=== PATIENT | female | born 1955 | race Caucasian/White ===

== ENCOUNTER 2018-10-12 14:55 | Observation (INO) ==
[2018-10-12 16:03] LABS: Albumin/Globulin Ratio 1.2 (1.1-1.8); Anion Gap 12.9 mEq/L (5-15); Bilirubin,Total 0.6 mg/dL (0.2-1.0); Calcium 9.7 mg/dL (8.5-10.1); Globulin 3.3 gm/dl (1.3-3.2); Total Protein,Serum 7.3 gm/dL (6.4-8.2)
[2018-10-12 16:23] LABS: Basophils % 0.2 % (0.1-2.0); Eosinophils # 0.1 K/mm3 (0.0-0.4); Eosinophils % 0.3 % (0.1-12.0); Hematocrit 43.4 % (37.0-47.0); Hemoglobin 13.5 g/dL (12.2-16.2); Lymphocytes # 1.5 K/mm3 (0.7-4.5); Lymphocytes % 10.3 % (10-50); Mean Corpuscular HGB Conc 31.1 g/dL (31.8-35.4); Mean Corpuscular Volume 92.6 fl (81-99); Monocytes # 0.7 K/mm3 (0.1-1.0); Monocytes % 4.6 % (1.7-9.3); Neutrophils # 12.7 K/mm3 (1.8-7.8); Neutrophils % 84.5 % (37.0-80.0); Platelet Count 249 K/mm3 (142-424); Red Blood Count 4.69 M/mm3 (4.20-5.40); Red Cell Distribution Width 12.1 % (11.5-17.5)
--- NOTE | 2018-10-12 16:39 | Emergency Department Note ---
ED Disposition Clinical Impression: Retrocecal appendicitis Disposition: Still a Patient Condition on Discharge: Good Instructions: DI for Acute Abdomen Referrals: Provider,Referral, [Primary Care Provider] - Time of Disposition: 17:27 - Critical Care Critical Care Time: No Attestation: On 10/12/18, the high probability of a clinically significant, sudden or life threatening deterioration of the following system(s) required my full and direct attention, intervention and personal management. The time I documented below is in addition to time spent performing reported procedures but includes the following listed in this critical care notation. Medical Decision Making - Medical Records Medical records reviewed: Yes: I reviewed the patient's medical records. - Mark Inquiry Pt receiving controlled substance: No Mark was queried for this patient: No Vital Signs: 10/12/18 15:03 10/12/18 15:26 10/12/18 17:21 Temperature 97.8 F 97.8 F Temperature Source Oral Oral Pulse Rate [Right Radial] 70 81 74 Respiratory Rate 21 17 Blood Pressure [Right Arm] 110/61 142/68 H 146/76 H Blood Pressure Mean [Right Arm] 77 92 99 Blood Pressure Source [Right Arm] Automatic Cuff Automatic Cuff Automatic Cuff Blood Pressure Position [Right Arm] Sitting Sitting Supine 02 Sat by Pulse Oximetry 98 100 96 Oxygen Delivery Method Room Air Room Air Room Air - Lab Data Lab results reviewed: Yes: I reviewed the patient's lab results. Lab Results 10/12/18 15:14: Urine Color Yellow, Urine Appearance Clear, Urine pH 5.0, Ur Specific [place] 1.015, Urine Protein Negative, Urine Glucose (UA) Negative, Ur ine Ketones Trace, Urine Blood Negative, Urine Nitrate Negative, Urine Bilirubin Negative, Urine Urobilinogen 0.2, Ur Leukocyte Esterase Negative 10/12/18 15:20: Urine Color Yellow, Urine Appearance Clear, Urine pH 6.0, Ur Specific [place] 1.025, Urine Protein Negative, Urine Glucose (UA) Negative, Urine Ketones Trace, Urine Blood Negative, Urine Nitrate Negative, Urine Bi lirubin Negative, Urine Urobilinogen 0.2, Ur Leukocyte Esterase Negative 10/12/18 15:37: WBC 15.0 H, RBC 4.69, Hgb 13.5, Hct 43.4, MCV 92.6, MCH 28.8, MCHC 31.1 L, RDW 12.1, Plt Count 249, MPV 7.0 L, Neut % (Auto) 84.5 H, Lymph % (Auto) 10.3, [place] % (Auto) 4.6, Eos % (Auto) 0.3, Baso % (Auto) 0.2, Neut # (Auto) 12.7 H, Lymph # (Auto) 1.5, [place] # (Auto) 0.7, Eos # (Auto) 0.1, Baso # (Auto) 0.0, Total Counted 100, Neutrophils % (Manual) 85 H, Band Neutrophils % 4.0, Lymphocytes % (Manual) 9 L, Monocytes % (Manual) 2, Platelet Estimate Normal, RBC Morphology Normal 10/12/18 15:37: Sodium 140, Potassium 3.9, Chloride 104, Carbon Dioxide 27, Anion Gap 12.9, BUN 8, Creatinine 0.80, Estimated Creat Clear 58, Estimated GFR 73, Est GFR ( Amer) 88, Glucose 110 H, Calcium 9.7, Total Bilirubin 0.6, AST 19, ALT 28, Alkaline Phosphatase 90, Total Protein 7.3, Albumin 4.0, Globulin 3.3 H, Albumin/Globulin Ratio 1.2, Amylase 71, Lipase 109 Result diagrams: 10/12/18 15:37 10/12/18 15:37 Orders (Tests/Meds): ED MEDICATIONS Discontinued Medications Generic Name Dose Route Start Last Admin Trade Name Leda PRN Reason Stop Dose Admin Ampicillin Sodium/Sulbactam 100 mls @ 200 mls/hr 10/12/18 17:25 Sodium 3 gm/ Sodium Chloride IV 10/12/18 17:26 ONCE ONE Protocol Ioversol 75 ml 10/12/18 16:31 10/12/18 16:32 Rad-Optiray 350 100ml Vial IV 10/12/18 16:32 75 ml ONCE ONE Administration Protocol Morphine Sulfate 4 mg 10/12/18 17:03 10/12/18 17:08 Morphine 4mg/Ml Syringe IV 10/12/18 17:04 4 mg ONCE ONE Administration Ondansetron HCl 4 mg 10/12/18 17:03 10/12/18 17:08 Zofran 4mg/2ml Vial IV 10/12/18 17:04 4 mg ONCE ONE Administration Sodium Chloride 10 ml 10/12/18 16:31 10/12/18 16:32 Rad-Saline Flush 10ml Syringe IV 10/12/18 16:32 10 ml ONCE ONE Administration ORDERS Category Date Time Status Urinalysis and Microscopic Stat Lab 10/12/18 15:20 Results Urine Culture Stat Micro 10/12/18 15:20 Received Abdominal Pain HPI - General Chief Complaint: Abdominal Pain Stated Complaint: Pain in Adm Time Seen by Provider: 10/12/18 16:18 Mode of Arrival: Family Vehicle Source of Information: Patient Limitations: No Limitations Description of Symptoms (Recalled from ER Triage Doc. by RN): right mid epigastric radiating to right groin since this morning while she was sitting watching tv. states coughing and incr movement causes incr pain - Related Data Home Medications Medication Instructions Recorded Confirmed Cetirizine HCl [Zyrtec] 10 mg PO DAILY 08/25/18 08/25/18 Previous Rx's Medication Instructions Recorded Azithromycin [Z-Aubrey 250mg Tab] 250 mg PO UD DOSE PK #6 tab 08/25/18 Promethazine/Dextromethorphan 5 ml PO Q6HP PRN #240 syrup 08/25/18 [Promethazine-Dm Syrup] Allergies Allergy/AdvReac Type Severity Reaction Status Date / Time No Known Allergies Allergy Verified 08/25/18 16:58 [facility] History - Hepatitis A Screen Drug use history?: No High risk sexual behaviors?: No History of sexually transmitted infection?: No Currently employed?: No Childcare worker?: No Do you have indoor plumbing?: Yes Do you have electricity?: Yes Attestation statement:: This patient has been screened for Hepatitis A risk factors. I have reviewed the patient's past medical history: Yes Fractures: Yes (ARM) - Social History Smoking Status: Never smoker Tobacco Type: cigarettes # Packs/Day (cigarettes): 1 Alcohol Intake: never Occupational Status: employed - Psychiatric History Expresses thoughts of harming self/others: None Suicide Plan Description: No Plan ROS Obtained: Yes All systems reviewed & no additional complaints - Constitutional Constitutional: Reports system reviewed and no additional complaints, except as docu - Eyes Eyes: Denies blurry vision, Denies change in vision - ENT Ears, Nose, Mouth, and Throat: Denies sinus pain, Denies sinus pressure, Denies sore throat - Cardiovascular Cardiovascular: Denies chest pain, Denies chest pain at rest, Denies diaphoresis, Denies dyspnea - Respiratory Respiratory: No chest congestion, No cough, No dyspnea, No dyspnea on exertion - Gastrointestinal Gastrointestingal: Reports: abdominal pain, cramping. Denies: diarrhea, vomiting - Genitourinary Female Genitourinary: Denies dysuria, Denies flank pain - Musculoskeletal Musculoskeletal: Denies back pain, Denies joint stiffness, Denies joint swelling, Denies limited range of motion - Integumentary/Breasts Skin/Breast: Denies rash, Denies skin pain - Neurologic Neurologic: Denies headache(s), Denies sensory deficit, Denies syncope - Hematologic/Lymphatic Henatologic/Lymphatic: Denies easy bleeding, Denies easy bruising Physical Exam - General General appearance: alert, in no apparent distress - Head Head exam: atraumatic, normocephalic, normal inspection - Eye Eye exam: Present: normal appearance, PERRL, EOMI - ENT ENT exam: Present: normal exam, normal oropharynx, mucous membranes moist, TM's normal bilaterally, normal external ear exam - Chest Chest inspection: Present: normal inspection, symmetric chest wall rise. Absent: tenderness - Respiratory Respiratory exam: Present: normal lung sounds bilaterally. Absent: respiratory distress - Cardiovascular Cardiovascular exam: Present: regular rate, normal rhythm. Absent: JVD - Abdominal Exam Abdominal exam: Present: soft, tenderness, other (pain in suprapubic, right pelvic area. + guarding). Absent: distention, rigidity, hyperactive bowel sounds, hypoactive bowel sounds, organomegaly, mass - Extremities Exam Extremities exam: Present: normal inspection, full ROM, normal capillary refill. Absent: calf tenderness - Neurological Exam Neurological exam: Present: alert, oriented X3 - Psychiatric Psychiatric exam: Present: normal affect, normal mood - Skin Skin exam: Present: warm, dry, intact, normal color
[2018-10-12 16:53] LABS: Lymphocytes % 9 % (10-50); Monocytes % 2 % (2-9); Neutrophils % 85 % (42-76); RBC Morphology Normal; Total Cells Counted 100
[2018-10-12 17:23] LABS: Microscopic, Urine URINE MICROSCOPIC (MICROSCOPIC)
[2018-10-12 17:24] LABS: Appearance,Urine CLEAR (Clear); Bilirubin,Urine Negative (Negative); Blood, Urine Negative (Negative); Color,Urine YELLOW (Yellow); Glucose,Urine (UA) Negative (Negative); Ketones,Urine TRACE (Negative); Leukocyte Esterase,Urine Negative (Negative); Protein,Urine Negative (Negative); Specific Gravity, Urine 1.025 (1.005-1.030); Urobilinogen,Urine 0.2 EU/dl (0.2)
[2018-10-12 17:32] LABS: Bacteria,Urine Trace /lpf
--- NOTE | 2018-10-12 19:15 | Operative Note ---
Date of procedure: 10/12/18 Pre-op Diagnosis:: Acute appendicitis Post-op Diagnosis:: Suppurative appendicitis Procedure performed:: Laparoscopic appendectomy Surgeon:: Juan Vale MD [facility] CLERGY:: Karlos David Anesthesia: GETA Estimated blood loss (mL): 10 Operative findings:: Severe inflammation and thickening of appendix Patchy necrosis along central and distal appendix with no sign of obvious perforation Suppurative changes noted throughout appendix Appendiceal stump/colonic margin appeared viable Operative note:: After informed consent was obtained the patient was taken to the operating room and placed in the supine position. General anesthesia was induced and her abdomen was prepped and draped in a sterile fashion. After infiltration with local anesthetic an infraumbilical incision was made. A Veress needle was placed in position. The abdomen was insufflated. A 12 mm optical trocar was placed in position. Under direct visualization a 5 mm trocar was placed in the suprapubic position and an additional 5 mm trocar was placed in the left lower quadrant. The appendix was carefully elevated. Severe thickening and inflammation was noted throughout the mid and distal appendix. Suppurative changes were noted throughout. Patchy areas of necrosis were noted; however, no obvious perforation was seen. The mesoappendix was taken down with harmonic yady. The appendiceal stump was then taken utilizing the Endopath device. The appendix was placed in a retrieval bag and removed through the infr aumbilical trocar site. The right lower quadrant was thoroughly irrigated. No active bleeding or sign of injury was noted. No pockets of purulence were noted. Pneumoperitoneum was released as the infraumbilical trocar was removed. Fascia was reapproximated at the infraumbilical trocar site with 0 Ethibond. The remaining trocars were removed. All wounds were irrigated and skin was closed with 4-0 Monocryl in a subcuticular fashion. Steri-Strips were applied. The patient's anesthetic agents were reversed and she was extubated prior to transfer to recovery. Condition: stable Disposition: PACU Specimens:: Appendix Complications:: No immediate
--- NOTE | 2018-10-12 19:27 | Progress Note ---
[facility] Anesthesia Checklist - Patient Identification Patient Identification: Arm Band, Verbal (Name & ) - Structural Data Admitted From: Emergency Dept Planned Operative Procedure/s: lap appy Consent for Planned Operative Procedure(s) Verified: Yes Verified Documents: History and Physical - NPO Status Verified Time NPO: 15:00 - Additional verifications Patient : No Anesthesia Reactions: No Hx Blood Transfusions: No Blood Transfusion Reaction: No Cephalosporin Allergy: No Previous Colonoscopy: No - Cardiovascular Assessment Heart Sounds: S1 & S2 Pulse Strength: Baseline Pulse Rhythm: Regular Peripheral Edema: No - Airway Assessment C-Spine Mobility Assessed: Yes TMJ Mobility Assessed: Yes Dentition: Good Dentition - Neurological Assessment Level of Consciousness: Awake, Alert, Appropriate Hx Seizures: No Numbness or tingling in extremities: No - Anesthesia Plan Anesthesia Risk discussed: Yes Anesthesia Plan: Verified ASA Class: I [facility] History I have reviewed the patient's past medical history: Yes *Have you ever received a pneumonia vaccine?: No *Have you received a flu vaccine this season?: No Other Medical History: Denies: Blood Transfusion Reaction Fractures: Yes (ARM) - *Social History Smoking Status: Never smoker Tobacco Type: cigarettes # Packs/Day (cigarettes): 1 Alcohol Intake: never *Occupational Status:: employed *Travel in the last 8 weeks: None - Psychiatric History Expresses thoughts of harming self/others: None Suicide Plan Description: No Plan Family Hx:: Unable to obtain
--- NOTE | 2018-10-12 19:28 | Progress Note ---
[facility] Anesthesia Record Part I Intake, IV Amount: 500 Estimated blood loss (mL): 0 Urine output (mL): 0 Blood Products used (#): none Blood Pressure: 133/76 SaO2: 90 Pulse Rate: 81 Respiratory Rate: 20 Temperature: 97.2 F Patient is:: Awake, Stable Stable to PACU at:: 19:20
--- NOTE | 2018-10-12 19:28 | Progress Note ---
[facility] Anesthesia Record Part II Discharge Time: 19:50 Destination: Medical Surgical Department PACU nurse assessment reviewed?: Yes Patient Condition:: Good Anesthesia Complications:: None Swallowing reflex intact?: Yes Cyanosis?: No
--- NOTE | 2018-10-13 06:46 | Progress Note ---
Subjective Patient reports: feels better Exam Vital signs and Labs for Last 24 Hours: Temp Pulse Resp BP Pulse Ox 98.3 F 69 16 88/41 L 92 L 10/13/18 04:00 10/13/18 04:00 10/13/18 04:00 10/13/18 04:00 10/13/18 04:00 Laboratory Results - last 24 hr 10/12/18 15:14: Urine Color Yellow, Urine Appearance Clear, Urine pH 5.0, Ur Specific [place] 1.015, Urine Protein Negative, Urine Glucose (UA) Negative, Urine Ketones Trace, Urine Blood Negative, Urine Nitrate Negative, Urine Bilirubin Negative, Urine Urobilinogen 0.2, Ur Leukocyte Esterase Negative 10/12/18 15:20: Urine Color Yellow, Urine Appearance Clear, Urine pH 6.0, Ur Specific [place] 1.025, Urine Protein Negative, Urine Glucose (UA) Negative, Urine Ketones Trace, Urine Blood Negative, Urine Nitrate Negative, Urine Bilirubin Negative, Urine Urobilinogen 0.2, Ur Leukocyte Esterase Negative, Ur Squamous Epith Cells 5-10, Urine Bacteria Trace 10/12/18 15:37: WBC 15.0 H, RBC 4.69, Hgb 13.5, Hct 43.4, MCV 92.6, MCH 28.8, MCHC 31.1 L, RDW 12.1, Plt Count 249, MPV 7.0 L, Neut % (Auto) 84.5 H, Lymph % (Auto) 10.3, [place] % (Auto) 4.6, Eos % (Auto) 0.3, Baso % (Auto) 0.2, Neut # (Auto) 12.7 H, Lymph # (Auto) 1.5, [place] # (Auto) 0.7, Eos # (Auto) 0.1, Baso # (Auto) 0.0, Total Counted 100, Neutrophils % (Manual) 85 H, Band Neutrophils % 4.0, Lymphocytes % (Manual) 9 L, Monocytes % (Manual) 2, Platelet Estimate Normal, RBC Morphology Normal 10/12/18 15:37: Sodium 140, Potassium 3.9, Chloride 104, Carbon Dioxide 27, Anion Gap 12.9, BUN 8, Creatinine 0.80, Estimated Creat Clear 58, Estimated GFR 73, Est GFR ( Amer) 88, Glucose 110 H, Calcium 9.7, Total Bilirubin 0.6, AST 19, ALT 28, Alkaline Phosphatase 90, Total Protein 7.3, Albumin 4.0, Globulin 3.3 H, Albumin/Globulin Ratio 1.2, Amylase 71, Lipase 109 10/12/18 18:20: Urine Color Yellow, Urine Appearance Clear, Urine pH 5.5, Ur Specific [place] 1.010, Urine Protein Negative, Urine Glucose (UA) Negative, Urine Ketones Negative, Urine Blood Trace-i, Urine Nitrate Negative, Urine Bilirubin Negative, Urine Urobilinogen 0.2, Ur Leukocyte Esterase Negative, Urine WBC Occasional, Ur Squamous Epith Cells Occasional I & O for Last 24 hours: Intake & Output 10/10/18 10/11/18 10/12/18 10/13/18 11:59 11:59 11:59 11:59 Intake Total 1814 / 1814 Output Total 200 / 200 Balance 1614 / 1614 Weight 139 lb 2 oz - Constitutional no acute distress - *Routine Respiratory Exam Absent: respiratory distress - *Routine Cardiovascular Exam Present: RRR - *Routine Abdominal Exam Present: soft Comments: Dressings intact. Dressings dry. No erythema. Progress Note: A&P (1) Suppurative appendicitis Status: Acute Assessment and plan: Overall, doing well postoperative day 1 status post laparoscopic appendectomy. Follow-up morning labs Slowly advance diet Continue antibiotics Possible discharge home later today Current Visit: Yes
[2018-10-13 06:50] LABS: Basophils % 0.2 % (0.1-2.0); Eosinophils # 0.1 K/mm3 (0.0-0.4); Eosinophils % 0.6 % (0.1-12.0); Hematocrit 33.3 % (37.0-47.0); Lymphocytes % 24.2 % (10-50); Mean Corpuscular HGB Conc 32.4 g/dL (31.8-35.4); Mean Corpuscular Volume 93.6 fl (81-99); Mean Platelet Volume 7.3 fl (7.4-10.4); Monocytes # 0.5 K/mm3 (0.1-1.0); Monocytes % 5.8 % (1.7-9.3); Neutrophils # 5.6 K/mm3 (1.8-7.8); Neutrophils % 69.2 % (37.0-80.0); Platelet Count 174 K/mm3 (142-424); Red Blood Count 3.56 M/mm3 (4.20-5.40); Red Cell Distribution Width 12.2 % (11.5-17.5); White Blood Count 8.1 K/mm3 (4.8-10.8)
[2018-10-13 06:56] LABS: Anion Gap 12.6 mEq/L (5-15)
[2018-10-13 07:21] LABS: Calcium 7.8 mg/dL (8.5-10.1)
[2018-10-13 07:26] LABS: Hemoglobin 10.6 g/dL (12.2-16.2)
--- NOTE | 2018-10-13 07:26 | Pharmacy Consult Notes ---
[facility] Pharmacy VTE Monitoring - Patient Demographics Admission date: 10/12/18 Report Date: 10/13/18 Time: 07:25 Allergies/Adverse Reactions: Patient Allergies No Known Allergies Allergy (Verified 08/25/18 16:58) Height: 1.73 m Weight: 63.503 kg Patient Problems: Current Active Problems (Updated 10/13/18 @ 06:46 by Juan Vale MD) Retrocecal appendicitis (Acute) Suppurative appendicitis (Acute) - VTE Risk Labs: VTE Related Lab Results Hgb 13.5 g/dL (12.2-16.2) 10/12/18 15:37 Hct 33.3 % (37.0-47.0) L 10/13/18 06:12 Plt Count 174 K/mm3 (142-424) D 10/13/18 06:12 BUN 8 mg/dL (7-18) 10/13/18 06:12 Creatinine 0.91 mg/dL (0.55-1.02) 10/13/18 06:12 Estimated Creat Clear 58 mL/min (50-200) 10/13/18 06:12 Was VTE Risk Assessment Performed: Yes VTE Score: 2 Clinical Trial Participant: No - Prophylaxis VTE Prophylaxis Ordered?: Yes Types of VTE Prophylaxis: TEDS Knee High Location of Applied Device: Bilateral Lower Extremeties
[2018-10-13 11:46] VITALS: BP 90/52
--- NOTE | 2018-10-13 14:02 | Discharge Summary ---
General - General Admission date:: 10/12/18 Discharge date: 10/13/18 HPI HPI: This is a 63-year-old female who presented to the emergency department with a 12-hour history of increasing pain in the mid abdomen with some radiation to the right lower quadrant. She had associated nausea and emesis. No definitive fevers. Poor appetite. Evaluation in the emergency department revealed leukocytosis. A CT scan revealed evidence of appendicitis. The surgical service was consulted for further evaluation and management. Hospital Course Hospital Course: She underwent laparoscopic appendectomy. Please see operative report for detail. Suppurative appendicitis was noted. Patchy areas of necrosis were seen. No definitive perforation was noted. She convalesced well overnight. She was maintained on scheduled Zosyn. She remained afebrile. Labs on the morning of postoperative day 1 revealed resolution of her leukocytosis. On the afternoon of postoperative day 1 she was deemed appropriate for discharge with close outpatient follow-up. At the time of discharge she was afebrile with stable vital signs. She was ambulating without difficulty. Objective Vital signs: Temp Pulse Resp BP Pulse Ox 98.2 F 57 L 18 90/52 L 95 10/13/18 11:42 10/13/18 11:42 10/13/18 11:42 10/13/18 11:42 10/13/18 11:42 no acute distress - *Routine HEENT Exam Head: Present: normocephalic, atraumatic - *Routine Neck Exam Present: full ROM - Routine Chest/Breast/Axilla Exam Chest wall: Absent: tenderness - *Routine Respiratory Exam Absent: respiratory distress - *Routine Cardiovascular Exam Present: RRR - *Routine Abdominal Exam Present: soft, tenderness - *Routine Extremities Exam Present: full ROM. Absent: cyanosis, clubbing, edema - Routine Back/Spine/Pelvis Exam Back/Spine: Present: full ROM - *Routine Skin Exam Present: intact - *Routine Neurological Exam Present: alert, oriented X3 - Routine Psychiatric Exam Present: normal affect Results Labs on day of discharge: Labs from last 24 hours 10/13/18 10/13/18 10/12/18 06:12 06:12 18:20 WBC 8.1 D RBC 3.56 L Hgb 10.6 L D Hct 33.3 L MCV 93.6 MCH 30.4 MCHC 32.4 RDW 12.2 Plt Count 174 D MPV 7.3 L Neut % (Auto) 69.2 Lymph % (Auto) 24.2 [place] % (Auto) 5.8 Eos % (Auto) 0.6 Baso % (Auto) 0.2 Neut # (Auto) 5.6 Lymph # (Auto) 2.0 [place] # (Auto) 0.5 Eos # (Auto) 0.1 Baso # (Auto) 0.0 Total Counted Neutrophils % (Manual) Band Neutrophils % Lymphocytes % (Manual) Monocytes % (Manual) Platelet Estimate RBC Morphology Sodium 142 Potassium 3.6 Chloride 105 Carbon Dioxide 28 Anion Gap 12.6 BUN 8 Creatinine 0.91 Estimated Creat Clear 58 Estimated GFR 63 Est GFR ( Amer) 76 Glucose 89 Calcium 7.8 L D Total Bilirubin AST ALT Alkaline Phosphatase Total Protein Albumin Globulin Albumin/Globulin Ratio Amylase Lipase Urine Color Yellow Urine Appearance Clear Urine pH 5.5 Ur Specific [place] 1.010 Urine Protein Negative Urine Glucose (UA) Negative Urine Ketones Negative Urine Blood Trace-i Urine Nitrate Negative Urine Bilirubin Negative Urine Urobilinogen 0.2 Ur Leukocyte Esterase Negative Urine WBC Occasional Ur Squamous Epith Cells Occasional Urine Bacteria 10/12/18 10/12/18 10/12/18 15:37 15:37 15:20 WBC 15.0 H RBC 4.69 Hgb 13.5 Hct 43.4 MCV 92.6 MCH 28.8 MCHC 31.1 L RDW 12.1 Plt Count 249 MPV 7.0 L Neut % (Auto) 84.5 H Lymph % (Auto) 10.3 [place] % (Auto) 4.6 Eos % (Auto) 0.3 Baso % (Auto) 0.2 Neut # (Auto) 12.7 H Lymph # (Auto) 1.5 [place] # (Auto) 0.7 Eos # (Auto) 0.1 Baso # (Auto) 0.0 Total Counted 100 Neutrophils % (Manual) 85 H Band Neutrophils % 4.0 Lymphocytes % (Manual) 9 L Monocytes % (Manual) 2 Platelet Estimate Normal RBC Morphology Normal Sodium 140 Potassium 3.9 Chloride 104 Carbon Dioxide 27 Anion Gap 12.9 BUN 8 Creatinine 0.80 Estimated Creat Clear 58 Estimated GFR 73 Est GFR ( Amer) 88 Glucose 110 H Calcium 9.7 Total Bilirubin 0.6 AST 19 ALT 28 Alkaline Phosphatase 90 Total Protein 7.3 Albumin 4.0 Globulin 3.3 H Albumin/Globulin Ratio 1.2 Amylase 71 Lipase 109 Urine Color Yellow Urine Appearance Clear Urine pH 6.0 Ur Specific [place] 1.025 Urine Protein Negative Urine Glucose (UA) Negative Urine Ketones Trace Urine Blood Negative Urine Nitrate Negative Urine Bilirubin Negative Urine Urobilinogen 0.2 Ur Leukocyte Esterase Negative Urine WBC Ur Squamous Epith Cells 5-10 Urine Bacteria Trace 10/12/18 15:14 WBC RBC Hgb Hct MCV MCH MCHC RDW Plt Count MPV Neut % (Auto) Lymph % (Auto) [place] % (Auto) Eos % (Auto) Baso % (Auto) Neut # (Auto) Lymph # (Auto) [place] # (Auto) Eos # (Auto) Baso # (Auto) Total Counted Neutrophils % (Manual) Band Neutrophils % Lymphocytes % (Manual) Monocytes % (Manual) Platelet Estimate RBC Morphology Sodium Potassium Chloride Carbon Dioxide Anion Gap BUN Creatinine Estimated Creat Clear Estimated GFR Est GFR ( Amer) Glucose Calcium Total Bilirubin AST ALT Alkaline Phosphatase Total Protein Albumin Globulin Albumin/Globulin Ratio Amylase Lipase Urine Color Yellow Urine Appearance Clear Urine pH 5.0 Ur Specific [place] 1.015 Urine Protein Negative Urine Glucose (UA) Negative Urine Ketones Trace Urine Blood Negative Urine Nitrate Negative Urine Bilirubin Negative Urine Urobilinogen 0.2 Ur Leukocyte Esterase Negative Urine WBC Ur Squamous Epith Cells Urine Bacteria DS: Diagnosis - Discharge Diagnosis (1) Suppurative appendicitis Status: Acute Discharge Plan - Patient Discharge Instructions ACTIVITY: No heavy lifting DIET: advance to your usual diet Additional Instructions: Complete course of Augmentin Patient Instructions: How to Care for a Surgical Wound, DI for Appendicitis -- Adult, DI for Surgical Site Infection, Appendectomy -- Laparoscopic Surgery - Follow up Plan Follow up with: Juan Vale MD [Staff Physician] - 10/24/18 10:15 am Disposition: Home, Self-Senior Living Medications: Home Medications Medication Instructions Recorded Confirmed Type Amoxicillin/Potassium Clav 1 tab PO Q12H #14 tab 10/13/18 Rx [Augmentin 875-125 Tablet] Hydrocodone/Acetaminophen [[place] 1 - 2 each PO Q6HP PRN #17 tab 10/13/18 Rx 5-325 Tablet] Prescriptions/Medication Reconciliation: New Hydrocodone/Acetaminophen [[place] 5-325 Tablet] 1 - 2 each PO Q6HP PRN #17 tab PRN Reason: pain Amoxicillin/Potassium Clav [Augmentin 875-125 Tablet] 1 tab PO Q12H #14 tab
== END 2018-10-13 14:40 | disposition home or self-care (01) ==
LOC: UTC 14:55 → 2ND 14:55 → ER 14:55 → 2ND 18:05
PROVIDERS: ADMIT Surgery; ATTEND Surgery
DX: K35.890 Other acute appendicitis without perforation or gangrene
CPT/HCPCS: 36415; 74177; 80048; 80053; 81001; 81003; 82150; 83690; 85007; 85025; 87086; 96365; 96375; 99284; G0378; J2405; J2543; Q9967

== ENCOUNTER → 2021-06-02 09:40 | Outpatient (CLI) | payer BC, SELFPAY ==
[2021-06-03 10:45] LABS: Covid-19 Nasal PCR Sendout Lex POSITIVE
== END ==
PROVIDERS: Visit Provider Nurse Practitioner
DX: U07.1 COVID-19 (principal)
CPT/HCPCS: C9803; U0004; U0005

== ENCOUNTER 2021-06-06 14:18 | Emergency (ER) | payer BC, SELFPAY ==
[2021-06-06 14:20] VITALS: BP 133/70; PULSE 86; RESP 20; TEMP 36.7; O2SAT 98; BMI 23.8
[2021-06-06 14:44] VITALS: BMI 24.7
[2021-06-06 14:54] LABS: Microscopic, Urine URINE MICROSCOPIC (MICROSCOPIC)
[2021-06-06 15:00] VITALS: BP 118/64; PULSE 80; O2SAT 98
[2021-06-06 15:04] LABS: Appearance,Urine SL CLOUDY (Clear); Bilirubin,Urine Negative (Negative); Blood, Urine Negative (Negative); Color,Urine STRAW (Yellow); Glucose,Urine (UA) Negative (Negative); Ketones,Urine 1+ (Negative); Leukocyte Esterase,Urine TRACE (Negative); Nitrate,Urine POSITIVE (Negative); PH,Urine 6.5 (5.0-8.5); Protein,Urine Negative (Negative); Urobilinogen,Urine 0.2 EU/dl (0.2)
[2021-06-06 15:26] LABS: Bacteria,Urine 3+ /lpf; WBC,Urine Occasional #/hpf (0-3)
--- NOTE | 2021-06-06 16:21 | HMH.EDGENADL ---
ED Disposition Clinical Impression: COVID-19, Urinary tract bacterial infections Disposition: Home, Self-Care Condition on Discharge: Good Referrals: Provider,Referral, [Primary Care Provider] - - Critical Care Critical Care Time: No Attestation: On 06/06/21, the high probability of a clinically significant, sudden or life threatening deterioration of the following system(s) required my full and direct attention, intervention and personal management. The time I documented below is in addition to time spent performing reported procedures but includes the following listed in this critical care notation. Medical Decision Making - Medical Records Medical records reviewed: Yes: I reviewed the patient's medical records. - Mark Inquiry Pt receiving controlled substance: No Vital Signs: 06/06/21 14:20 06/06/21 15:00 Temperature 98.1 F Temperature Source Oral Pulse Rate 80 Pulse Rate [Right Radial] 86 Respiratory Rate 20 Blood Pressure 118/64 Blood Pressure [Right Arm] 133/70 Blood Pressure Mean [Right Arm] 91 Blood Pressure Source [Right Arm] Automatic Cuff Blood Pressure Position [Right Arm] Sitting 02 Sat by Pulse Oximetry 98 98 Oxygen Delivery Method Room Air Room Air - Lab Data Lab results reviewed: Yes: I reviewed the patient's lab results. Lab Results 06/06/21 14:30: Urine Color Straw, Urine Appearance Sl cloudy, Urine pH 6.5, Ur Specific [place] 1.010, Urine Protein Negative, Urine Glucose (UA) Negative, Urine Ketones 1+, Urine Blood Negative, Urine Nitrate Positive, Urine Bilirubin Negative, Urine Urobilinogen 0.2, Ur Leukocyte Esterase Trace, Urine RBC None, Urine WBC Occasional, Ur Squamous Epith Cells 5-10, Urine Bacteria 3+ Orders (Tests/Meds): ED MEDICATIONS Discontinued Medications Generic Name Dose Route Start Last Admin Trade Name Freq PRN Reason Stop Dose Admin Acetaminophen 1,000 mg 06/06/21 14:59 06/06/21 15:23 Acetaminophen 500mg Tab PO 06/06/21 15:00 1,000 mg ONCE ONE Administration Belladonna Alkaloids 60 ml 06/06/21 14:45 06/06/21 14:54 Gi Cocktail 60ml Udc PO 06/06/21 14:46 60 ml ONCE ONE Administration Lactated Ringer's 500 mls @ 999 mls/hr 06/06/21 15:00 06/06/21 15:23 Lactated Ringer's 1000 Ml Bag IV 06/06/21 15:30 999 mls/hr .Q31M ASHLEE Administration Ketorolac Tromethamine 15 mg 06/06/21 14:59 06/06/21 15:22 Ketorolac 30mg/Ml Vial IV 06/06/21 15:00 15 mg ONCE ONE Administration Ondansetron HCl 4 mg 06/06/21 14:58 06/06/21 15:19 Ondansetron 4mg Odt SL 06/06/21 14:59 Not Given ONCE ONE Ondansetron HCl 4 mg 06/06/21 15:20 06/06/21 15:22 Ondansetron 4mg/2ml Vial IV 06/06/21 15:21 4 mg ONCE ONE Administration ORDERS Category Date Time Status Urine Culture Stat Micro 06/06/21 14:30 Received Medical Decision Narrative: Patient is a 65-year-old female presenting with a chief complaint of malaise, headache, nausea, vomiting, diarrhea and suprapubic abdominal pain. Differential diagnosis includes, but is not limited to, COVID-19 viral syndrome, urinary tract infection, pyelonephritis, dehydration. On initial exam, patient is medically stable and nontoxic-appearing. She has mild tenderness to palpation of her suprapubic abdomen. She was evaluated with UA which is positive for infection. She was prescribed a course of antibiotics. She was treated with 1 L of IV fluids and IV Toradol and IV Zofran. She reported significant improvement of her symptoms. She was advised regarding her test results, given return precautions and discharged in stable condition. General Adult HPI - General Chief complaint: Recheck/Abnormal Lab/Rx Stated complaint: covid pos 2/7, worsening symptoms Time Seen by Provider: 06/06/21 14:30 Mode of Arrival: Ambulatory Limitations: No Limitations Description of Symptoms (Recalled from ER Triage Doc. by RN): Pt states that she tested positive for COVID l
[2021-06-06 16:34] VITALS: BP 128/69; PULSE 84; RESP 20; TEMP 36.7; O2SAT 97
== END 2021-06-06 16:36 | disposition home or self-care (01) ==
PROVIDERS: Emergency Provider Emergency Medicine
DX: U07.1 COVID-19 (principal); N39.0 Urinary tract infection, site not specified; K21.9 Gastro-esophageal reflux disease without esophagitis; F17.210 Nicotine dependence, cigarettes, uncomplicated
CPT/HCPCS: 81001; 87086; 87088; 87186; 96365; 96375; 99282; J2405

== ENCOUNTER 2021-06-11 09:56 | Emergency (ER) | payer BC, SELFPAY ==
[2021-06-11] VITALS (10 sets, daily range): BP systolic 100–133; BP diastolic 55–81; PULSE 86–106; RESP 18; TEMP 36.9; O2SAT 93–97; BMI 22.8
--- NOTE | 2021-06-11 10:47 | CT_ITS ---
FINAL REPORT CLINICAL HISTORY: abd pain, RUQ, diarrhea COMPARISON: 10/12/2018 FINDINGS: Technique: The patient was injected with intravenous contrast. Axial images through the abdomen and pelvis were performed. This study was performed with techniques to keep radiation doses as low as reasonably achievable (ALARA). Individualized dose reduction techniques using automated exposure control or adjustment of mA and/or kV according to the patient's size were employed. Abdomen: There is moderate emphysema. There is moderate scarring at the lung bases. A small cyst is seen in the anterior liver dome. The gallbladder is distended with gallstones. There is no evidence of biliary ductal dilatation. The spleen is unremarkable. The adrenals are normal. The pancreas is unremarkable. Multiple bilateral renal cysts are identified. The aorta is normal in caliber. There is no free fluid or adenopathy. Pelvis: The appendix is not identified. The urinary bladder is unremarkable. There is no free fluid or adenopathy. IMPRESSION: Distended gallbladder with gallstones. If indicated, nuclear medicine hepatobiliary scan may be helpful. Reviewed, Interpreted and Dictated by Cong Perrin III, MD Transcribed by Nneka Haro Authenticated by Cong Perrin III, MD on 06/11/2021 12:46:[address] [facility]
--- NOTE | 2021-06-11 10:53 | HMH.EDGENADL ---
ED Disposition Clinical Impression: Cholelithiasis Qualifiers: Cholelithiasis location: gallbladder Cholecystitis presence: without cholecystitis Biliary obstruction: without biliary obstruction Qualified Code(s): K80.20 - Calculus of gallbladder without cholecystitis without obstruction Disposition: Home, Self-Care Condition on Discharge: Fair (No evidence of acute cholecystitis at this time, incidental finding of gallstones with mild laboratory abnormalities, patient hemodynamically stable and given return precautions.) Additional Instructions: Please call [facility] main phone number and ask for general surgery office, there is no ability for you to be seen as soon as 06/16/2021. Schedule an appointment as soon as possible for evaluation of your gallbladder and please return to the emergency department with any new or worsening symptoms including inability to tolerate food or drink by mouth, fevers, worsening pain, fainting or any other new or concerning symptoms. Referrals: Provider,Referral, [Primary Care Provider] - - Critical Care Critical Care Time: No Attestation: On 06/11/21, the high probability of a clinically significant, sudden or life threatening deterioration of the following system(s) required my full and direct attention, intervention and personal management. The time I documented below is in addition to time spent performing reported procedures but includes the following listed in this critical care notation. Medical Decision Making - Mark Inquiry Pt receiving controlled substance: No Vital Signs: 06/11/21 09:59 06/11/21 10:30 06/11/21 10:45 Temperature 98.5 F Temperature Source Oral Pulse Rate 95 H 86 Pulse Rate [Left Radial] 106 H Respiratory Rate 18 Blood Pressure 133/55 L 116/62 Blood Pressure [Right Arm] 110/57 L Blood Pressure Mean Blood Pressure Mean [Right Arm] 74 Blood Pressure Source [Right Arm] Automatic Cuff Blood Pressure Position [Right Arm] Sitting 02 Sat by Pulse Oximetry 97 96 95 Oxygen Delivery Method Room Air 06/11/21 11:30 06/11/21 12:00 06/11/21 12:30 Temperature Temperature Source Pulse Rate 97 H 86 86 Pulse Rate [Left Radial] Respiratory Rate 18 Blood Pressure 100/81 L 120/62 132/68 Blood Pressure [Right Arm] Blood Pressure Mean 86 Blood Pressure Mean [Right Arm] Blood Pressure Source [Right Arm] Blood Pressure Position [Right Arm] 02 Sat by Pulse Oximetry 93 L 93 L 95 Oxygen Delivery Method Room Air 06/11/21 13:00 06/11/21 13:30 06/11/21 14:00 Temperature Temperature Source Pulse Rate 86 91 H 86 Pulse Rate [Left Radial] Respiratory Rate 18 18 18 Blood Pressure 128/61 126/75 132/72 Blood Pressure [Right Arm] Blood Pressure Mean 83 90 83 Blood Pressure Mean [Right Arm] Blood Pressure Source [Right Arm] Blood Pressure Position [Right Arm] 02 Sat by Pulse Oximetry 95 96 95 Oxygen Delivery Method - Lab Data Lab Results 06/11/21 11:29: WBC 8.7, RBC 4.42, Hgb 13.9, Hct 41.4, MCV 93.7, MCH 31.5 H, MCHC 33.6, RDW 12.2, Plt Count 174, MPV 7.9, Neut % (Auto) 88.7 H, Lymph % (Auto) 7.1 L, [place] % (Auto) 3.8, Eos % (Auto) 0.1, Baso % (Auto) 0.3, Neut # (Auto) 7.7, Lymph # (Auto) 0.6 L, [place] # (Auto) 0.3, Eos # (Auto) 0.0, Baso # (Auto) 0.0, Total Counted 100, Neutrophils % (Manual) 87 H, Band Neutrophils % 1.0, Lymphocytes % (Manual) 9 L, Monocytes % (Manual) 3, Platelet Estimate Normal, RBC Morphology Normal 06/11/21 11:29: Lipase 347 H 06/11/21 11:29: Sodium 133 L, Potassium 3.5, Chloride 101, Carbon Dioxide 26, Anion Gap 9.5, BUN 8, Creatinine 0.60, Estimated Creat Clear 61, Estimated GFR 101, Est GFR ( Amer) 122, Glucose 95, Calcium 7.8 L, Total Bilirubin 0.7, AST 58 H, ALT 44, Alkaline Phosphatase 75, Total Protein 6.5, Albumin 3.7, Globulin 2.8, Albumin/Globulin Ratio 1.3 06/11/21 11:29: Lactate 0.9 06/11/21 14:25: Urine Color Yellow, Urine Appearance Clear,
[2021-06-11 11:42] LABS: Basophils % 0.3 % (0.1-2.0); Eosinophils % 0.1 % (0.1-12.0); Hematocrit 41.4 % (37.0-47.0); Hemoglobin 13.9 g/dL (12.2-16.2); Lymphocytes # 0.6 K/mm3 (0.7-4.5); Lymphocytes % 7.1 % (10-50); Mean Corpuscular HGB Conc 33.6 g/dL (31.8-35.4); Mean Corpuscular Hemoglobin 31.5 pg (27.0-31.2); Mean Corpuscular Volume 93.7 fl (81-99); Mean Platelet Volume 7.9 fl (7.4-10.4); Monocytes # 0.3 K/mm3 (0.1-1.0); Monocytes % 3.8 % (1.7-9.3); Neutrophils # 7.7 K/mm3 (1.8-7.8); Neutrophils % 88.7 % (37.0-80.0); Platelet Count 174 K/mm3 (142-424); Red Blood Count 4.42 M/mm3 (4.20-5.40); Red Cell Distribution Width 12.2 % (11.5-17.5); White Blood Count 8.7 K/mm3 (4.8-10.8)
[2021-06-11 11:44] LABS: Chloride 101 mmol/L (98-107); Potassium 3.5 mmoL/L (3.5-5.1); Sodium 133 mmol/L (136-145)
[2021-06-11 11:47] LABS: Alanine Aminotransferase 44 U/L (12-78); Albumin Level 3.7 g/dl (3.5-5.0); Albumin/Globulin Ratio 1.3 (1.1-1.8); Alkaline Phosphatase 75 U/L (38-126); Anion Gap 9.5 mEq/L (5-15); Aspartate Amino Transferase 58 U/L (14-36); Bilirubin,Total 0.7 mg/dl (0.2-1.3); Blood Urea Nitrogen 8 mg/dl (7-17); Calcium 7.8 mg/dl (8.4-10.2); Carbon Dioxide 26 mmol/L (22.0-30.0); Creatinine Clearance Estimated 61 mL/min (50-200); Estimated Glomerular Filt Rate 101 ml/min (>60); GFR (African American) 122 ML/MIN (>60); Globulin 2.8 g/dL (1.3-3.2); Glucose 95 mg/dl (74-100); Lactic Acid 0.9 mmol/L (0.7-2.1); Lipase 347 U/L (23-300); Total Protein,Serum 6.5 g/dl (6.3-8.2)
[2021-06-11 11:48] LABS: MANUAL DIFFERENTIAL MANUAL DIFFERENTIAL (MANUAL DIFF)
[2021-06-11 12:01] LABS: Lymphocytes % 9 % (10-50); Monocytes % 3 % (2-9); Neutrophils % 87 % (42-76); Platelet Estimate Normal; RBC Morphology Normal; Total Cells Counted 100
--- NOTE | 2021-06-11 12:10 | PC.NURSE ---
Pt to rad.
--- NOTE | 2021-06-11 12:55 | US_ITS ---
FINAL REPORT CLINICAL HISTORY: RUQ pain FINDINGS: Sonographic images of the right upper quadrant were obtained. The pancreas is partially obscured.The liver has an unremarkable appearance. There are multiple gallstones in the gallbladder. There is no evidence of biliary ductal dilatation.The common duct measures 4mm. Limited images of the right kidney are unremarkable. IMPRESSION: Multiple gallstones in the gallbladder. Reviewed, Interpreted and Dictated by Cong Perrin III, MD Transcribed by Marisol Jaimes Authenticated by Cong Perrin III, MD on 06/11/2021 02:36:23 PM [facility]
[2021-06-11 14:47] LABS: Microscopic, Urine URINE MICROSCOPIC (MICROSCOPIC)
[2021-06-11 15:55] LABS: Appearance,Urine CLEAR (Clear); Blood, Urine TRACE-I (Negative); Color,Urine YELLOW (Yellow); Glucose,Urine (UA) Negative (Negative); Ketones,Urine 3+ (Negative); Leukocyte Esterase,Urine Negative (Negative); Nitrate,Urine Negative (Negative); Protein,Urine Negative (Negative); Specific Gravity, Urine <= 1.005 (1.005-1.030); Urobilinogen,Urine 0.2 EU/dl (0.2)
[2021-06-11 15:58] LABS: Bilirubin,Urine 1+ (Negative)
[2021-06-11 16:28] LABS: WBC,Urine Occasional #/hpf (0-3)
[2021-06-11 16:29] LABS: Bacteria,Urine Trace /lpf; RBC,Urine Occasional #/hpf (0-3)
== END 2021-06-11 18:41 | disposition home or self-care (01) ==
PROVIDERS: Emergency Provider Student in an Organized Health Care Education/Training Program
DX: K80.20 Calculus of gallbladder without cholecystitis without obstruction (principal); U07.1 COVID-19; F17.210 Nicotine dependence, cigarettes, uncomplicated
CPT/HCPCS: 74177; 76705; 80053; 81001; 83605; 83690; 85007; 85025; 96365; 96375; 99283; 99284; J2405; Q9967

== ENCOUNTER → 2021-07-12 09:40 | Outpatient (CLI) | payer BC, SELFPAY ==
[2021-07-12 09:47] LABS: Microscopic, Urine URINE MICROSCOPIC (MICROSCOPIC)
[2021-07-12 10:59] LABS: Basophils # 0.1 K/mm3 (0-0.2); Basophils % 0.7 % (0.1-2.0); Eosinophils # 0.1 K/mm3 (0.0-0.4); Hematocrit 40.3 % (37.0-47.0); Hemoglobin 12.6 g/dL (12.2-16.2); Lymphocytes % 27.6 % (10-50); Mean Corpuscular HGB Conc 31.4 g/dL (31.8-35.4); Mean Corpuscular Hemoglobin 31.4 pg (27.0-31.2); Mean Corpuscular Volume 100.1 fl (81-99); Mean Platelet Volume 8.9 fl (7.4-10.4); Monocytes # 0.3 K/mm3 (0.1-1.0); Neutrophils # 4.7 K/mm3 (1.8-7.8); Neutrophils % 66.7 % (37.0-80.0); Platelet Count 341 K/mm3 (142-424); Red Blood Count 4.02 M/mm3 (4.20-5.40); Red Cell Distribution Width 14.7 % (11.5-17.5); White Blood Count 7.1 K/mm3 (4.8-10.8)
[2021-07-12 11:06] LABS: INR 0.97 (0.9-1.1)
[2021-07-12 11:57] LABS: Alanine Aminotransferase 16 U/L (12-78); Albumin Level 3.7 g/dl (3.5-5.0); Albumin/Globulin Ratio 1.4 (1.1-1.8); Alkaline Phosphatase 80 U/L (38-126); Amylase 88 U/L (30-110); Anion Gap 8.3 mEq/L (5-15); Aspartate Amino Transferase 25 U/L (14-36); Bilirubin,Total 0.7 mg/dl (0.2-1.3); Blood Urea Nitrogen 5 mg/dl (7-17); Calcium 9.1 mg/dl (8.4-10.2); Carbon Dioxide 30 mmol/L (22.0-30.0); Chloride 104 mmol/L (98-107); Estimated Glomerular Filt Rate 101 ml/min (>60); GFR (African American) 122 ML/MIN (>60); Globulin 2.7 g/dL (1.3-3.2); Glucose 96 mg/dl (74-100); Lipase 125 U/L (23-300); Potassium 5.3 mmoL/L (3.5-5.1); Sodium 137 mmol/L (136-145); Total Protein,Serum 6.4 g/dl (6.3-8.2)
[2021-07-12 14:54] LABS: Appearance,Urine CLEAR (Clear); Bilirubin,Urine Negative (Negative); Blood, Urine Negative (Negative); Color,Urine YELLOW (Yellow); Glucose,Urine (UA) Negative (Negative); Ketones,Urine Negative (Negative); Leukocyte Esterase,Urine Negative (Negative); Nitrate,Urine Negative (Negative); Protein,Urine Negative (Negative); Specific Gravity, Urine <= 1.005 (1.005-1.030); Urobilinogen,Urine 0.2 EU/dl (0.2)
[2021-07-12 15:19] LABS: Squamous Epithelial Cell,Urine Occasional #/hpf (0-5)
== END ==
PROVIDERS: PCP Emergency Medicine; Referring Provider Physician Assistant; Visit Provider Surgery
DX: Z01.818 Encounter for other preprocedural examination (principal); K80.20 Calculus of gallbladder without cholecystitis without obstruction
CPT/HCPCS: 36415; 80053; 81001; 82150; 83690; 85025; 85610

== ENCOUNTER 2021-07-14 09:22 | Day surgery (SDC) | payer BC, SELFPAY ==
[2021-07-09 10:55] VITALS: BMI 19.0
[2021-07-14] VITALS (10 sets, daily range): BP systolic 101–129; BP diastolic 55–71; PULSE 65–86; RESP 12–20; TEMP 36.1–43; O2SAT 94–98
--- NOTE | 2021-07-14 12:10 | HMH.ANESCL ---
[facility] Anesthesia Checklist - Structural Data Admitted From: Home Planned Operative Procedure/s: dilia shook Consent for Planned Operative Procedure(s) Verified: Yes - Additional verifications Anesthesia Reactions: No Hx Blood Transfusions: No Blood Transfusion Reaction: No - Airway Assessment C-Spine Mobility Assessed: Yes TMJ Mobility Assessed: Yes Dentition: Good Dentition - Neurological Assessment Level of Consciousness: Awake, Alert, Appropriate - Anesthesia Plan Anesthesia Risk discussed: Yes Anesthesia Plan: Verified ASA Class: II Anesthesia Type: General [facility] History I have reviewed the patient's past medical history: Yes Medical History: Denies:: Cancer, Diabetes Mellitus Type 1, Diabetes Mellitus Type 2, Internal Pacemaker, MRSA, Seizures *Have you ever received a pneumonia vaccine?: No *Have you received a flu vaccine this season?: No Other Medical History: Denies: Blood Transfusion Reaction Anesthesia experience/problems:: none Other Surgeries: Yes: Appendectomy, Hernia Repair. No: Pacemaker Amputation: No Fractures: Yes (ARM) - *Social History Last grade of school completed: High school graduate Smoking Status: Former smoker Tobacco Type: cigarettes # Packs/Day (cigarettes): 1 Alcohol Intake: never Substance Use Type: denies use *Occupational Status:: employed Housing: house Household Members: spouse *Travel in the last 8 weeks: None Family Hx:: Cancer, Coronary Artery Disease
--- NOTE | 2021-07-14 12:48 | HMH.OPNOTE ---
Date of procedure: 07/14/21 Pre-op Diagnosis:: Symptomatic gallstones Post-op Diagnosis:: Same Procedure performed:: Laparoscopic cholecystectomy Surgeon:: Cong Hurley MD AGRICULTURAL RESEARCH ENGINEER:: Lazaro Herrera Anesthesia: GETCristela Estimated blood loss (mL): 25 Clinical Note:: Patient is a 65-year-old female who had been referred by the emergency department for gallbladder. She has no primary care provider. She had tested positive for Covid on 06/02/2021. She had presented to the emergency department on 06/06/2021 with complaints of malaise, headache, nausea, vomiting, diarrhea, suprapubic abdominal pain. Urinalysis was apparently positive for urinary tract infection. She was managed as an outpatient. She returned to the emergency department on 06/11/2021 with symptoms of headache and nausea and diarrhea with some associated right upper quadrant pain along with some associated malaise and weakness. Evaluation in the emergency department included CT scan of the abdomen and pelvis which showed distended gallbladder with gallstones. Right upper quadrant ultrasound revealed gallstones without ductal dilatation. Laboratory values revealed a slightly elevated AST of 58 and lipase of 347. She was able to be managed as an outpatient and referred for outpatient surgical consultation. She continues to complain of nausea and inability to tolerate oral intake. She has nausea even with water. She does have right upper quadrant pain which occasionally takes her breath. Of note, the patient previously had laparoscopic appendectomy by Dr. Vale for retrocecal acute suppurative appendicitis in 2019. I had a long discussion with the patient. I felt that some degree of her symptoms may be secondary to her gallbladder given the nausea and right upper quadrant pain. I discussed the options with her including cholecystectomy. Patient strongly wishes to proceed with cholecystectomy. Operative findings:: She had a somewhat distended gallbladder with minimal omental adhesions. She had hepatomegaly. Operative note:: Patient was taken to the operating room. She was given preoperative intravenous antibiotics. In the operating room she was placed in a supine position. General anesthesia was induced via endotracheal tube. Abdomen was prepped and draped in the standard surgical fashion. Infraumbilical skin incision was made and while performing abdominal wall lift Veress needle was inserted. CO2 pneumoperitoneum was achieved to 15 mmHg. 11 mm optical trocar was inserted at the umbilicus. She was positioned in reverse Trendelenburg left side down. She was noted to have significant hepatomegaly. A couple of 5 mm trochars were inserted in the right lower quadrant. 10 mm trocar was inserted in the epigastrium. Liver was elevated and gallbladder was identified. It was grasped and retracted anteriorly and superiorly over the dome of the liver. Infundibulum of the gallbladder was grasped and retracted anterolaterally. Blunt dissection was carried out at the neck of the gallbladder bluntly incising the visceral peritoneum. Visceral peritoneum was divided laterally using VU ultrasonic robotic yady. Dissection was carried out very clearly identifying the cystic duct and cystic artery in the critical view of safety. Cystic duct was multiply clipped and sharply divided. Cystic artery was carefully coagulated with VU ultrasonic robotic yady and divided. The gallbladder was dissected free from the liver in a retrograde fashion using VU ultrasonic harmonic yady. There was some unavoidable spillage of bile during the dissection process which was suctioned free. The gallbladder was placed within an Endo Catch retrieval device and removed from the peritoneal cavity via the umbilical trocar site. Gallbladder fossa and perihepatic space were then irrigated and aspirated until clear. Trochars were removed as CO2 pneumoperitoneum was evacuated. Fascia at the umbilicus was closed with a c
--- NOTE | 2021-07-14 13:00 | HMH.ANESI ---
[facility] Anesthesia Record Part I Intake, IV Amount: 1,500 Estimated blood loss (mL): 0 Urine output (mL): 0 Blood Pressure: 129/71 SaO2: 96 Pulse Rate: 86 Respiratory Rate: 12 Temperature: 98.6 F Patient is:: Awake, Stable Stable to PACU at:: 12:55
--- NOTE | 2021-07-14 13:27 | PC.NURSE ---
1323-detailed report called to JACQUELINE haq 1325-pt transported to post op via stretcher w/lori rails up and left in care of JACQUELINE Haq with bed locked in lowest position, vss, pt stable
[2021-07-15 06:58] VITALS: BP 123/65; PULSE 83; TEMP 37.2
--- NOTE | 2021-07-15 06:58 | HMH.ANESII ---
[facility] [place] Anesthesia Record Part II Discharge Time: 13:25 Destination: Surgical Day Care (OP Surgery) PACU nurse assessment reviewed?: Yes Patient Condition:: Good Anesthesia Complications:: None Swallowing reflex intact?: Yes Cyanosis?: No Blood Pressure: 123/65 Pulse Rate: 83 Temperature: 98.9 F Mental Status: Alert & Oriented Pain level:: 0 Nausea and/or vomitting:: None Intake, IV Amount: 0
== END 2021-07-14 13:56 | disposition home or self-care (01) ==
LOC: OR 09:23
PROVIDERS: PCP Physician Assistant; Visit Provider Surgery
PROC: 0FT44ZZ Resection of Gallbladder, Percutaneous Endoscopic Approach (ICD-10-PCS; CPT 47562; principal; 2021-07-14 11:15)
DX: K80.80 Other cholelithiasis without obstruction (principal); K66.0 Peritoneal adhesions (postprocedural) (postinfection); R16.0 Hepatomegaly, not elsewhere classified; Z87.891 Personal history of nicotine dependence; Z80.9 Family history of malignant neoplasm, unspecified; Z82.49 Family history of ischemic heart disease and other diseases of the circulatory system
CPT/HCPCS: 47562; 96374; J2405; J2710